=== PATIENT | male | born 1985 | race Caucasian/White ===

== ENCOUNTER 2024-11-23 07:11 | Emergency (ER) | payer OTHER, SELFPAY ==
--- OUTSIDE RECORDS SUMMARY | 2024-11-23 07:21 | XMS_ITS | Clinical Summary ---
Author Organization [employer] [facility] Address [address] [facility] [address] [facility] Attn: Epic Prelude ADT JERSON LLOYD [id number] Care Team Providers Care Cook Ice Cream Name Role Phone Unavailable Primary Care Provider Unavailabl e Social History Tobacco Use Types Packs/Day Years Used Date Smoking Tobacco: Never Assessed Sex and Gender Information Value Date Recorded Sex Assigned at Not on file Legal Sex Male 11:32 AM CDT Gender Identity Not on file Sexual Orientation Not on file Plan of Treatment Health Maintenance Due Date Last Done Comments HPV VACCINES (1 - Male 3-dose series) 12/20/1998 DTAP/TDAP/TD VACCINES (1 - Tdap) 12/20/2002 HEPATITIS B VACCINES (1 of 3 - 19+ 3-dose series) 12/09 INFLUENZA VACCINE (#1) 2024
--- OUTSIDE RECORDS SUMMARY | 2024-11-23 07:21 | XMS_ITS | Encounter Summary ---
Author Organization [facility] Address [address] [place] [address] Care Team Providers Care Hotel Or Motel Room Service Supervisor Name Role Phone Unavailable Primary Care Provider Unavailabl e Encounter Details Date Type Department Care Team (Late st Contact Info) Description 02/08/2019 Lab Requisition [facility] [address] [place] [address] Sergio Quezada DO [address] [address] Social History Tobacco Use Types Packs/Day Years Used Date Smoking Tobacco: Never Assessed Sex and Gender Information Value Date Recorded Sex Assigned at Not on file Legal Sex Male 11:32 AM CDT Gender Identity Not on file Sexual Orientation Not on file documented as of this encounter Plan of Treatment Not on file documented as of this encounter Procedures Procedure Name Priority Date/Time Associated Diagnosis Comments HEMOGLOBIN A1C Routine 02/08/2019 8:21 AM CDT LIPID PANEL Routine 02/08/2019 8:21 AM CDT documented in this encounter Results * HEMOGLOBIN A1C (02/08/2019 8:21 AM CDT) HEMOGLOBIN A1C 4.9 <=5.6 % 02/11/2019 9:59 AM [facility] [facility] [employer] [facility] EST. AVG GLUCOSE, A1C 94 mg/dL 02/11/2019 9:59 AM [employer] [facility] Blood Collection / Unknown 02/08/2019 8:21 AM CDT 02/08/2019 5:06 PM CDT Narrative [facility] [employer] [facility] - 02/11/2019 9:59 AM [employer] HGB A1C INTERPRETATION NORMAL: <5.7% PRE-DIABETES: 5.7 - 6.4% DIABETES: 6.5% OR GREATER us Sergio Quezada DO CHEMISTRY ORDERABLES Final R esult Performing Organization Address City/[facility]/ZIP Co de Phone Number [facility]# [id number] [address] [place] [address] * (ABNORMAL) LIPID PANEL (02/08/2019 8:21 AM CDT) [facility] CHOLESTEROL 228(H) <200 mg/dL 02/08/2019 6:12 PM CDT [facility] TRIGLYCERIDE 322(H) <150 mg/dL 02/08/2019 6:12 PM CDT [facility] HDL 39(L) 40 - 59 mg/dL 02/08/2019 6:12 PM CDT [facility] LDL CALCULATED 125(H) <100 mg/dL 02/08/2019 6:12 PM T [facility] NON-HDL CHOLESTEROL 189(H) <130 mg/dL 02/08/2019 6:12 PM T [facility] Blood Collection / Unknown 02/08/2019 8:21 AM CDT 02/08/2019 5:24 PM CDT Narrative [facility] - 02/08/2019 6:12 PM CDT TOTAL CHOLESTEROL mg/dL Desirable <200 Borderline high 200-239 High >=240 TRIGLYCERIDES mg/dL Normal <150 Borderline high 150-199 High 200-499 Very high >=500 HDL CHOLESTEROL mg/dL Low <40 Normal 40-59 Desirable >=60 NON HDL CHOLESTEROL mg/dL Optimal <130 Near Optimal 130-159 Borderline High 160-189 Very High >=190 Calculated LDL mg/dL Optimal <100 Near Optimal 100-129 Borderline High 130-159 High 160-189 Very High >=190 ATPIII Guidelines Reference Ranges for Lipid Panels (NCEP/AMA) us Sergio Quezada DO CHEMISTRY ORDERABLES Final R esult [facility]# [id number] [address] [place] [address] documented in this encounter Visit Diagnoses Not on filedocumented in this encounter
[2024-11-23 07:29] VITALS: BP 149/92; PULSE 129; RESP 17; TEMP 36.9; O2SAT 98; BMI 30.5
[2024-11-23] MEDS: tetanus-dipt-pertussis 0.5 mL SDV IM (08:00)
[2024-11-23] MEDS: ceFAZolin 1,000 MG in water for injection-sterile 2.5 ML 999 MG IM (08:06)
[2024-11-23] MEDS: lidocaine-epi 1% 20 mL INJ INJECTION (08:12)
--- NOTE | 2024-11-23 08:18 | W.ED.WOUNDLC ---
HPI - Wound/Laceration General: Chief Complaint: Wound/Laceration Stated Complaint: 2in lac lt calf Time Seen by Provider: 11/23/24 07:28 History of Present Illness: 38-year-old male presents to the emergency room with a 7-1/2 cm laceration to the left lateral calf. He is unsure of his last tetanus shot this happened just before arrival. No other injury. Uncertain of tetanus Related Data Allergies Allergy/AdvReac Type Severity Reaction Status Date / Time No Known Allergies Allergy Verified 11/23/24 07:32 Physical Exam Extremity: OTHER: 7 cm laceration left mid calf laterally. No active bleeding Procedures Laceration Laceration 1: Site: lower extremity Side (If applicable): left Size (cm): 7.5 Description: linear Depth: simple, single layer Local Anesthetic: lidocaine 1% and with epi Amount of anesthesia used (mL): 8 Pre-repair: irrigated extensively Skin layer closed with: other (Prolene) Size (cm): 3-0 Number of sutures: 1 Technique: running (Running locking) Course Vital Signs: Vital signs: Vital Signs Temperature 98.4 F 11/23/24 07:29 Pulse Rate 118 H 11/23/24 08:30 Respiratory Rate 17 11/23/24 07:29 Blood Pressure 132/87 11/23/24 08:30 Pulse Oximetry 96 11/23/24 08:30 Oxygen Delivery Me thod Room Air 11/23/24 07:29 MDM - Wound/Laceration Medical Decision Making Wound care instructions given follow-up with primary care as needed. Tetanus was updated. Was given prophylactic Ancef in the emergency room No radiology studies performed this visit Discharge Plan Discharge Patient Disposition: Home Clinical Impression: Laceration Condition: Stable Discharge Orders: Discharge ED (Routine); Ordered 11/23/24 Ordered By: Octavio Kendall Discharge Diet: Usual diet Discharge Activity: Resume usual activity Patient Instructions: Laceration (ED), Opioid Safety, Pain Management, Patient Portal & Brenda Instructions Activity Restrictions/Additional Instructions: Thank you for choosing [facility] for your healthcare needs today. It is very important that you follow up as instructed or that you return to the Emergency Department should you have concerns or if your condition changes or worsens in any way. You were seen in the emergency room after a laceration to the left leg. The wound was closed with sutures. Sutures should be removed in approximately 10 days. Apply brhj-nad-[id number] topical antibiotic ointment to the wound once a day. You should keep the wound covered whenever you are working or outside of your home. You may leave it open to the air when you are sitting and resting. You may shower but should not soak the wound or swim until the sutures are out. Before showering apply generous amount of Vaseline to repel water. Return if there is signs of infection. While you were here today your tetanus was updated. Print Language: Lao Coding Level of Care Code ED Summer Law Clerk for Lionel Newell
[2024-11-23 08:30] VITALS: BP 132/87; PULSE 118; O2SAT 96
== END 2024-11-23 08:32 | disposition home or self-care (01) ==
PROVIDERS: Emergency Provider Family Medicine
DX: S81.812A Laceration without foreign body, left lower leg, initial encounter (principal); X58.XXXA Exposure to other specified factors, initial encounter
CPT/HCPCS: 12002; 90471; 90715; 96372; 99284; J0690; J9999